=== PATIENT | male | born 1950 | race African-American/Black ===

== ENCOUNTER 2021-03-21 04:35 | Day surgery (SDC) | payer OTHER, BC ==
[2021-03-20 14:40] VITALS: BMI 34.7
[2021-03-21] MEDS ORDERED: MIDAZOLAM HCL 2 MG/2 ML SINGLE DOSE VIAL ONE (08:30)
[2021-03-21] MEDS ORDERED: LIDOCAINE HCL 1%, 10 MG/ML (20ML VIAL) INF ONE (08:34)
[2021-03-21] MEDS ORDERED: methylPREDNISolone ACET (DEPO) 80 MG/1 ML VIAL IM ONE (08:34)
[2021-03-21] MEDS ORDERED: BUPIVACAINE HCL/PF 0.25% (2.5MG/ML) 10 ML VIAL IJ ONE (08:34)
[2021-03-21 09:50] VITALS: BP 127/84; PULSE 79; TEMP 97.7
== END 2021-03-21 09:40 | disposition home or self-care (01) ==
LOC: JASU-SURG 04:35
PROVIDERS: ATTEND Neurological Surgery
PROC: 3E0R33Z Introduction of Anti-inflammatory into Spinal Canal, Percutaneous Approach (ICD-10-PCS; 2021-03-21)
PROC: 3E0R3BZ Introduction of Anesthetic Agent into Spinal Canal, Percutaneous Approach (ICD-10-PCS; principal; 2021-03-21 08:30)
DX: M51.26 Other intervertebral disc displacement, lumbar region (principal); M96.1 Postlaminectomy syndrome, not elsewhere classified
CPT/HCPCS: 76000-TC-FY

== ENCOUNTER 2021-04-18 04:16 | Day surgery (SDC) | payer OTHER, BC ==
[2021-04-16 11:42] VITALS: BMI 34.7
[2021-04-18] MEDS ORDERED: BUPIVACAINE HCL/PF 0.5% (5MG/ML) 10 ML VIAL ONE (07:09)
[2021-04-18] MEDS ORDERED: methylPREDNISolone ACET (DEPO) 80 MG/1 ML VIAL ONE (07:09)
[2021-04-18] MEDS ORDERED: LIDOCAINE HCL/PF 1% SDV 5ML VIAL ONE (07:11)
[2021-04-18] MEDS ORDERED: BUPIVACAINE HCL/PF 0.25% (2.5MG/ML) 10 ML VIAL ONE ×2 (07:11)
[2021-04-18] MEDS ORDERED: MIDAZOLAM HCL 2 MG/2 ML SINGLE DOSE VIAL ONE (07:42)
[2021-04-18] MEDS ORDERED: SUCCINYLCHOLINE CHLORIDE 200 MG/10 ML SYRINGE ONE (07:42)
[2021-04-18] MEDS ORDERED: LIDOCAINE HCL 1% PRESERVATIVE FREE - 30ML VIAL IJ ONE (07:52)
[2021-04-18] MEDS ORDERED: methylPREDNISolone ACET (DEPO) 80 MG/1 ML VIAL IM ONE (07:52)
[2021-04-18] MEDS ORDERED: BUPIVACAINE HCL/PF 0.25% (2.5MG/ML) 10 ML VIAL IJ ONE (07:52)
[2021-04-18] MEDS ORDERED: oxyCODONE HCL 5 MG TABLET PO PRN (09:07)
[2021-04-18] MEDS ORDERED: ONDANSETRON 4 MG/2 ML VIAL IVPUSH PRN (09:07)
[2021-04-18] MEDS ORDERED: ACETAMINOPHEN 500 MG TABLET (FP) PO PRN (09:07)
[2021-04-18] MEDS ORDERED: LACTATED RINGERS SOLUTION 1,000 ML IV SCH (09:15)
[2021-04-18 09:35] VITALS: BP 140/78; PULSE 70; TEMP 98.3
== END 2021-04-18 09:46 | disposition home or self-care (01) ==
LOC: JASU-SURG 04:16
PROVIDERS: ATTEND Neurological Surgery
PROC: 3E0R33Z Introduction of Anti-inflammatory into Spinal Canal, Percutaneous Approach (ICD-10-PCS; 2021-04-18)
PROC: 3E0R3BZ Introduction of Anesthetic Agent into Spinal Canal, Percutaneous Approach (ICD-10-PCS; principal; 2021-04-18 07:30)
DX: M96.1 Postlaminectomy syndrome, not elsewhere classified (principal); M48.061 Spinal stenosis, lumbar region without neurogenic claudication
CPT/HCPCS: 76000-TC-FY

== ENCOUNTER 2021-09-12 04:05 | Inpatient (IN) | payer OTHER, BC ==
[2021-09-10 10:49] VITALS: BMI 34.7
[2021-09-12] MEDS ORDERED: VANCOMYCIN 1,000 MG VIAL (RESTRICTED TO ID ONLY) ONE (07:15)
[2021-09-12] MEDS ORDERED: BUPIVACAINE HCL/PF 0.5% (5MG/ML) 10 ML VIAL ONE (07:15)
[2021-09-12] MEDS ORDERED: THROMBIN (BOVINE) 5,000 UNIT VIAL TP ONE ×2 (07:15→08:34)
[2021-09-12] MEDS ORDERED: methylPREDNISolone ACET (DEPO) 80 MG/1 ML VIAL ONE (07:15)
[2021-09-12] MEDS ORDERED: BACITRACIN 15 GM TUBE TOPICAL OINTMENT ONE (07:15)
[2021-09-12] MEDS ORDERED: SUCCINYLCHOLINE CHLORIDE 200 MG/10 ML SYRINGE ONE (07:27)
[2021-09-12] MEDS ORDERED: ROCURONIUM BROMIDE 50 MG/5 ML SYRINGE ONE (07:27)
[2021-09-12] MEDS ORDERED: PROPOFOL 20 ML ONE (07:27)
[2021-09-12] MEDS ORDERED: MIDAZOLAM HCL 2 MG/2 ML SINGLE DOSE VIAL ONE ×2 (07:27)
[2021-09-12] MEDS ORDERED: ceFAZolin SODIUM 1 GM VIAL ONE ×3 (08:24→22:04)
[2021-09-12] MEDS ORDERED: DEXAMETHASONE SOD PHOSPHATE 4 MG/1 ML VIAL ONE (08:28)
[2021-09-12] MEDS ORDERED: ceFAZolin SODIUM 1 GM VIAL IVPB ONE (08:28)
[2021-09-12] MEDS ORDERED: ONDANSETRON 4 MG/2 ML VIAL ONE ×2 (08:28→10:16)
[2021-09-12] MEDS ORDERED: PHENYLEPHRINE HCL 10 MG/1 ML SINGLE DOSE VIAL ONE (08:29)
[2021-09-12] MEDS ORDERED: VASOPRESSIN 20 UNITS/ML VIAL IV ONE ×2 (09:11→09:12)
[2021-09-12] MEDS ORDERED: BUPIVACAINE HCL/PF 0.5% (5MG/ML) 10 ML VIAL IJ ONE (09:55)
[2021-09-12] MEDS ORDERED: BISACODYL 10 MG SUPP.RECT RC PRN (10:28)
[2021-09-12] MEDS ORDERED: ONDANSETRON 4 MG/2 ML VIAL IVPUSH PRN ×2 (10:28→10:51)
[2021-09-12] MEDS ORDERED: ACETAMINOPHEN 325 MG TABLET (FP) PO PRN (10:28)
[2021-09-12] MEDS ORDERED: D5-1/2NS+20 MEQ KCL - 1,000 ML IV SCH (10:30)
[2021-09-12] MEDS ORDERED: HYDROmorphone *PCA* 10MG/50ML DISP.SYRIN PCA PRN (11:00)
[2021-09-12 11:42] LABS: HEMATOCRIT 39.1 % (35.4-49); HEMOGLOBIN 12.2 GM/dL (11.7-16.9); MCHC 31.3 g/dl (32.0-35.9); MEAN CELL VOLUME 83.1 fl (80-96); MEAN PLT VOLUME 8.6 fl (7.5-11.1); PLATELET COUNT 212 10^3/uL (134-434); RDW 14.1 % (11.9-15.9); WHITE BLOOD COUNT 9.6 K/mm3 (4.0-10.0)
[2021-09-12 12:00] LABS: CALCIUM 9.1 mg/dL (8.5-10.1)
[2021-09-12 12:01] LABS: BLOOD UREA NITROGEN 25.5 mg/dL (7-18)
[2021-09-12 12:05] LABS: CREATININE 1.9 mg/dL (0.55-1.3)
[2021-09-12] MEDS ORDERED: CEFAZOLIN 1 GM in DEXTROSE 5%-WATER - 1 GM/50 ML IVPB IVPB SCH (14:30)
[2021-09-12] MEDS: D5-1/2NS+20 MEQ KCL - 20 MEQ/1,000 ML INFUS.BAG IV SCH ×2 (16:56→21:53)
[2021-09-12] MEDS: diazePAM 5 MG TABLET PO SCH ×2 (16:56→19:49)
[2021-09-12] MEDS ORDERED: DEXTROSE 5%-WATER - 50 ML IVPB ONE ×2 (17:03→22:04)
[2021-09-12] MEDS: DOCUSATE SODIUM 100 MG CAPSULE (FP) PO SCH ×2 (17:08→22:12)
[2021-09-12] MEDS: LACTATED RINGERS SOLUTION 1,000 ML IV SCH (17:08)
[2021-09-12] MEDS: CEFAZOLIN 1 GM in DEXTROSE 5%-WATER - 50 ML IVPB SCH ×2 (17:08→22:11)
[2021-09-12] MEDS: ROSUVASTATIN CA 5 MG TABLET PO SCH (22:12)
[2021-09-13] MEDS: diazePAM 5 MG TABLET PO SCH ×3 (02:03→18:25)
[2021-09-13] MEDS ORDERED: DEXTROSE 5%-WATER - 50 ML IVPB ONE (06:25)
[2021-09-13] MEDS ORDERED: ceFAZolin SODIUM 1 GM VIAL ONE (06:25)
[2021-09-13] MEDS: DOCUSATE SODIUM 100 MG CAPSULE (FP) PO SCH ×3 (06:32→21:56)
[2021-09-13] MEDS: CEFAZOLIN 1 GM in DEXTROSE 5%-WATER - 50 ML IVPB SCH (06:32)
[2021-09-13] MEDS: FOLIC ACID 1 MG TABLET (FP) PO SCH (10:30)
[2021-09-13] MEDS: LOSARTAN POTASSIUM 50 MG TABLET PO SCH (10:30)
[2021-09-13] MEDS: amLODIPine BESYLATE 10 MG TABLET (FP) PO SCH (10:30)
[2021-09-13] MEDS: HYDROCHLOROTHIAZIDE 25 MG TABLET (FP) PO SCH (10:31)
[2021-09-13] MEDS: D5-1/2NS+20 MEQ KCL - 20 MEQ/1,000 ML INFUS.BAG IV SCH (10:31)
[2021-09-13] MEDS: NEBIVOLOL 5 MG TABLET (FP) PO SCH (10:31)
[2021-09-13] MEDS: LACTATED RINGERS SOLUTION 1,000 ML IV SCH (10:32)
[2021-09-13] MEDS: ROSUVASTATIN CA 5 MG TABLET PO SCH (21:56)
[2021-09-13 22:39] VITALS: PULSE 74
[2021-09-14] MEDS: diazePAM 5 MG TABLET PO SCH ×2 (02:25→11:18)
[2021-09-14] MEDS: DOCUSATE SODIUM 100 MG CAPSULE (FP) PO SCH (05:22)
[2021-09-14 05:28] VITALS: BP 144/87; TEMP 99.6
[2021-09-14] MEDS: D5-1/2NS+20 MEQ KCL - 20 MEQ/1,000 ML INFUS.BAG IV SCH ×2 (06:52→11:18)
[2021-09-14] MEDS: LOSARTAN POTASSIUM 50 MG TABLET PO SCH (10:01)
[2021-09-14] MEDS: amLODIPine BESYLATE 10 MG TABLET (FP) PO SCH (10:01)
[2021-09-14] MEDS: NEBIVOLOL 5 MG TABLET (FP) PO SCH (10:01)
[2021-09-14] MEDS: HYDROCHLOROTHIAZIDE 25 MG TABLET (FP) PO SCH (10:02)
[2021-09-14] MEDS: FOLIC ACID 1 MG TABLET (FP) PO SCH (10:02)
[2021-09-14] MEDS: LACTATED RINGERS SOLUTION 1,000 ML IV SCH (11:18)
== END 2021-09-14 12:55 | disposition home health service (06) | DRG 516 ==
LOC: J2C 04:05 → EDSTATUS 07:30 → J8W 13:52
PROVIDERS: ADMIT Neurological Surgery; ATTEND Neurological Surgery
PROC: 01NB0ZZ Release Lumbar Nerve, Open Approach (ICD-10-PCS; 2021-09-12)
PROC: 0QB00ZZ Excision of Lumbar Vertebra, Open Approach (ICD-10-PCS; principal; 2021-09-12 07:30)
DX: M51.16 Intervertebral disc disorders with radiculopathy, lumbar region (principal); G95.9 Disease of spinal cord, unspecified; M48.061 Spinal stenosis, lumbar region without neurogenic claudication; R53.1 Weakness; M51.26 Other intervertebral disc displacement, lumbar region; M51.36 Other intervertebral disc degeneration, lumbar region; M06.9 Rheumatoid arthritis, unspecified; E66.9 Obesity, unspecified; Z68.34 Body mass index [BMI] 34.0-34.9, adult
CPT/HCPCS: 36415; 72100-TC-FY; 80048; 85027; 94010; 94760; 97116-GP; 97161-GP